=== PATIENT | male | born 1975 ===

== ENCOUNTER 2017-01-08 17:56 | Emergency (ER) | payer SELFPAY ==
--- NOTE | 2017-01-17 13:49 | ER ---
ADMIT: 01/08/2017 RM/LOC: [facility] MR#: [id number] [facility] [address] [place] [id number] [address] [place] [address] Emergency Room Report SEX: M AGE: 41 : 1975 DATE: 01/08/2017 ADDENDUM: CHIEF COMPLAINT: Epigastric pain. HISTORY OF PRESENT ILLNESS: This is a 41-year-old, who has a known history of GERD and gets peptic ulcer disease. His pain has become more intolerable for the last 3 days, worse with any kind of food, he rates his pain as 10/10. COURSE IN THE EMERGENCY ROOM: I gave him a GI cocktail, this did help with his pain a little bit. I am sending him home with Carafate, told him to continue the omeprazole, having him do a bland diet. I told him that he would stop smoking and drinking, this would help also. CLINICAL IMPRESSION: Gastroesophageal reflux disease. DISPOSITION: Again, I am sending him home with Carafate and gave him follow up with Dr. Norman. RICHELLE Cueva / Campos Lincoln MD / florinda JOB #: [id number] CC: Buddy Huang MD, Attending Physician Scott Norman MD, Family Physician
== END 2017-01-08 19:10 | disposition home or self-care (01) ==
LOC: ER 17:56
DX: K21.9 Gastro-esophageal reflux disease without esophagitis (principal); F17.200 Nicotine dependence, unspecified, uncomplicated